=== PATIENT | male | born 1995 | race African-American/Black ===

== ENCOUNTER 2018-02-17 19:47 | Emergency (ER) | payer OTHER ==
[2018-02-17] MEDS ORDERED: Lidocaine 1% w/Epinephrine 1:100K 30 ML VIAL ONE (19:56)
[2018-02-17] MEDS ORDERED: Adacel (T-DAP) 0.5 ML VIAL ONE (20:09)
[2018-02-17] MEDS ORDERED: Bacitracin Zinc 1 Packet ONE (20:27)
== END 2018-02-17 20:39 | disposition home or self-care (01) ==
LOC: SCSER 19:47
DX: S01.411A Laceration without foreign body of right cheek and temporomandibular area, initial encounter (principal); W01.198A Fall on same level from slipping, tripping and stumbling with subsequent striking against other object, initial encounter; Y93.67 Activity, basketball; Y92.149 Unspecified place in prison as the place of occurrence of the external cause
CPT/HCPCS: 12013; 90471; 90715; J2001